=== PATIENT | female | born 1945 | race Caucasian/White ===

== ENCOUNTER 2024-03-12 13:09 | Inpatient (IN) | payer OTHER ==
[2024-03-12] VITALS (17 sets, daily range): BP systolic 86–136; BP diastolic 54–106
[~2024-03-12] VITALS: Ht 177.8 cm; Wt 118.0 kg
[2024-03-12] MEDS ORDERED: Diltiazem HCl 5 MG / ML 5ML Vial IV ONE (13:35)
[2024-03-12 13:43] LABS: BASOPHILS ABSOLUTE AUTO 0.09 K/mm3 (0.00-0.23); BASOPHILS PERCENT AUTO 0 % (0-2); EOSINOPHILS ABSOLUTE AUTO 0.04 K/mm3 (0.00-0.68); EOSINOPHILS PERCENT AUTO 0 % (0-6); Hematocrit 40.8 % (33.0-51.0); Hemoglobin 13.7 g/dL (11.5-16.0); IMMATURE GRAN ABSOLUTE AUTO 0.13 K/mm3 (0.00-0.10); IMMATURE GRAN PERCENT AUTO 1 % (0-1); LYMPHOCYTES ABSOLUTE AUTO 1.56 K/mm3 (0.84-5.20); LYMPHOCYTES PERCENT AUTO 6 % (21-46); MONOCYTES ABSOLUTE AUTO 1.91 K/mm3 (0.16-1.47); MONOCYTES PERCENT AUTO 8 % (4-13); Mean Corpuscular HGB 28.1 pg (26.0-34.0); Mean Corpuscular HGB Conc 33.6 g/dL (31.5-36.5); Mean Corpuscular Volume 84 fL (80-100); Mean Platelet Volume 9.7 fL (9.1-12.4); NEUTROPHILS ABSOLUTE AUTO 20.85 K/mm3 (1.96-9.15); NEUTROPHILS PERCENT AUTO 85 % (41-73); Platelet Count 302 K/mm3 (150-400); RDW Coefficient Variation 13.9 % (11.7-14.2); RDW Standard Deviation 42.6 fL (35.1-46.3); Red Blood Cell Count 4.88 M/mm3 (3.80-5.20); White Blood Cell Count 24.58 K/mm3 (4.00-11.30)
[2024-03-12] MEDS ORDERED: Morphine Sulfate 4 MG/1 ML Injection IV ONE (13:50)
[2024-03-12 14:04] LABS: Albumin, Blood 3.1 g/dL (3.4-5.0); Albumin/Globulin Ratio 0.8 (0.8-1.8); Bilirubin, Total 1.2 mg/dL (0.1-1.0); Bun/Creatinine Ratio 27.6 (12.0-20.0); Calcium, Blood 8.9 mg/dL (8.5-10.1); Creatinine, Blood 0.65 mg/dL (0.40-1.00); Globulin, Blood 3.7 g/dL (2.2-4.0); Potassium, Blood 3.7 mmol/L (3.5-5.5); Total Protein, Blood 6.8 g/dL (6.4-8.2)
[2024-03-12] MEDS ORDERED: dilTIAZem HCL 100 MG in NS 100 ML IV SCH (14:05)
[2024-03-12] MEDS ORDERED: NS 1,000 ML IV SCH ×2 (14:25→15:05)
[2024-03-12 15:13] LABS: Influenza A, PCR NEGATIVE (NEGATIVE); Influenza B, PCR NEGATIVE (NEGATIVE); Resp Syncytial Virus, PCR NEGATIVE (NEGATIVE); SARS-Cov-2 (COVID-19) PCR, MMC NEGATIVE (NEGATIVE)
[2024-03-12] MEDS ORDERED: Digoxin 0.25 MG/ML 2ML Amp IV ONE (16:45)
[2024-03-12] MEDS ORDERED: Magnesium Sulf 2 GM/Water 50ML 50 ML IV ONE (16:45)
[2024-03-12] MEDS ORDERED: FLU VACC TS2024-25(6MOS UP)/PF 45 MCG/0.5 ML SYRINGE IM SCH (17:10)
[2024-03-12] MEDS ORDERED: Azithromycin 500 MG in NS 250 ML IV SCH (17:14)
[2024-03-12] MEDS ORDERED: CefTRIAXone Sodium 1,000 MG in NS 100 ML IV SCH (18:00)
[2024-03-12 18:01] LABS: Free Thyroxine 1.13 ng/dL (0.70-1.60); Magnesium, Blood 1.2 mg/dL (1.6-2.4); Phosphorus, Blood 2.6 mg/dL (2.5-4.9); Thyroid Stimulating Hormone 0.839 uIU/mL (0.360-4.800)
[2024-03-12] MEDS ORDERED: HYDROcodone 5-APAP 325 TAB PO PRN (18:35)
[2024-03-12] MEDS ORDERED: Morphine Sulfate 4 MG/1 ML Injection IV PRN (18:40)
[2024-03-12] MEDS ORDERED: Norco 5-325 Ta1 EACH PO (18:42)
[2024-03-12] MEDS ORDERED: HYDCHL25 PO (18:43)
[2024-03-12] MEDS ORDERED: Pepcid 20 mg Ta20 MG PO (18:43)
[2024-03-12] MEDS ORDERED: ATOR80 PO (18:43)
[2024-03-12] MEDS ORDERED: ATEN100 PO (18:44)
[2024-03-12] MEDS ORDERED: ALBU90OI INH (18:44)
[2024-03-12] MEDS ORDERED: BENADRYL25 MG PO (18:44)
[2024-03-12] MEDS ORDERED: OMEP20ER PO (18:45)
[2024-03-12] MEDS ORDERED: CARAFATE1 GM PO (18:45)
[2024-03-12] MEDS ORDERED: FLUTICASONE-SA1 EAC8 INH (18:46)
[2024-03-12] MEDS ORDERED: LEVOCETIRIZINE D5 MG PO (18:47)
[2024-03-12] MEDS ORDERED: LEVOTHYROXINE25 MC9 PO (18:47)
[2024-03-12] MEDS ORDERED: ASPI325 PO (18:48)
[2024-03-12] MEDS ORDERED: INSULANPEN SC (18:48)
[2024-03-12] MEDS ORDERED: Mometasone/Formoterol MDI 100/5 mcg 13 GM INH SCH (18:55)
[2024-03-12] MEDS ORDERED: Enoxaparin 120 MG/0.8 ML SYR SC SCH (19:00)
[2024-03-12] MEDS ORDERED: Metoprolol Tartrate 25 MG Tab PO SCH (19:00)
[2024-03-12] MEDS ORDERED: Insulin Glargine-Yfgn 100 Unit/mL 3 ML SYR SC SCH (21:00)
[2024-03-12] MEDS ORDERED: Famotidine 20 MG Tab PO SCH (21:00)
[2024-03-12] MEDS ORDERED: Insulin Human Lispro 100 Units/ML 3ML Syringe SC SCH (21:00)
[2024-03-12] MEDS ORDERED: Ondansetron HCl 2 MG / ML 2ML Vial IV PRN (21:03)
[2024-03-12 22:32] LABS: Source, Urine Clean Catch
[2024-03-12 22:49] LABS: Appearance, Urine Clear (Clear); Bilirubin, Urine Neg (Neg); Blood, Urine Neg (Neg); Color, Urine Yellow (P-Yellow); Glucose Qualitative, Urine Neg (Neg); Ketones, Urine Neg (Neg); Leukocyte Esterase, Urine 2+ (Neg); Nitrite, Urine Neg (Neg); Protein, Urine Neg (Neg); Specific Gravity, Urine 1.015 (1.003-1.022); Urobilinogen, Urine NORM (Normal)
[2024-03-12 23:05] LABS: Bacteria Mod /hpf; Red Blood Cells, Urine 0-2 /hpf (0-2); Squamous Epithelial Cells Few /hpf (Few)
[2024-03-13] VITALS (22 sets, daily range): BP systolic 92–139; BP diastolic 50–97
[2024-03-13 04:14] LABS: BASOPHILS PERCENT AUTO 0 % (0-2); EOSINOPHILS ABSOLUTE AUTO 0.06 K/mm3 (0.00-0.68); EOSINOPHILS PERCENT AUTO 0 % (0-6); Hematocrit 36.6 % (33.0-51.0); Hemoglobin 11.9 g/dL (11.5-16.0); IMMATURE GRAN ABSOLUTE AUTO 0.13 K/mm3 (0.00-0.10); IMMATURE GRAN PERCENT AUTO 1 % (0-1); LYMPHOCYTES PERCENT AUTO 17 % (21-46); MONOCYTES ABSOLUTE AUTO 1.97 K/mm3 (0.16-1.47); MONOCYTES PERCENT AUTO 8 % (4-13); Mean Corpuscular HGB 27.7 pg (26.0-34.0); Mean Corpuscular HGB Conc 32.5 g/dL (31.5-36.5); Mean Corpuscular Volume 85 fL (80-100); Mean Platelet Volume 9.8 fL (9.1-12.4); NEUTROPHILS ABSOLUTE AUTO 18.23 K/mm3 (1.96-9.15); NEUTROPHILS PERCENT AUTO 74 % (41-73); Platelet Count 283 K/mm3 (150-400); RDW Coefficient Variation 14.2 % (11.7-14.2); RDW Standard Deviation 44.1 fL (35.1-46.3); White Blood Cell Count 24.79 K/mm3 (4.00-11.30)
[2024-03-13] MEDS ORDERED: Omeprazole 20 MG CapCR PO SCH (06:00)
[2024-03-13] MEDS ORDERED: Levothyroxine Sodium 0.025 MG Tab PO SCH (06:00)
[2024-03-13 06:07] LABS: Albumin, Blood 2.7 g/dL (3.4-5.0); Albumin/Globulin Ratio 0.8 (0.8-1.8); Bilirubin, Total 0.8 mg/dL (0.1-1.0); Bun/Creatinine Ratio 24.9 (12.0-20.0); Calcium, Blood 8.6 mg/dL (8.5-10.1); Creatinine, Blood 0.72 mg/dL (0.40-1.00); Globulin, Blood 3.3 g/dL (2.2-4.0); Potassium, Blood 3.9 mmol/L (3.5-5.5)
--- NOTE | 2024-03-13 06:22 | NUR ---
SHIFT SUMMARY PT A&O X4. VSS; SBP HIGH 90'S - 120'S, HRR AFIB 100'S - 1 TEENS ON 5 MLS/HR CARDIZEM GTT. PT WITH OCCASSIONAL TOUCH INTO 130 - 140'S, MOSTLY WHEN UP AMBULATING TO RESTROOM. DOES NOT SUSTAIN, ASYMPTOMATIC. NO EVENTS OF CP/PRESSURE, DIZZINESS, PALPITATIONS OR DYSPNEA. PT WITH EPISODE OF NAUSEA AT START OF SHIFT AFTER ATTEMPTING TO EAT; RESIDENT NOTIFIED, ZOFRAN PER EMAR ORDERED. ADMINISTERED WITH GOOD RELIEF. PT WITH ABD PAIN AND "GENERAL PAIN" MEDICATION X1 PER EMAR; 2 MG OF MORPHINE AND 1 NORCO PER EMAR ADMINISTERED WITH GOOD RELIEF OF PAIN. PT ABLE TO SLEEP WELL THROUGH THE NIGHT. WHILE PT SLEEPING, 02 DECREASED TO LOW 80'S; 2 LPM NC PLACED. OF NOTE PT USES CPAP AT HOME, DECLINED HOSPITAL CPAP. TO BRING IN HOME CPAP TODAY. PT VOIDING WELL, URINE DARK IN COLOR BUT NO ODOR NOTED. UA SENT PER ORDERS. PT SBA FOR CORD MANAGEMENT TO BSC. NO BM THIS SHIFT; GI PANEL PENDING. PT DENIES COUGH OR SPUTUM PRODUCTION, SPUTUM SAMPLE STILL PENDING. PT TOLERATING PO WATER INTAKE, STRUGGLING WITH SOLID FOODS D/T NAUSEA THAT HAS BEEN ONGOING. PT ENCOURAGED TO EAT SOFT, LIGHT FOODS. ABX PER EMAR. ABLE TO MAKE NEEDS KNOWN, CALL LIGHT IN REACH. WILL UPDATE ONCOMING RN.
[2024-03-13] MEDS ORDERED: Magnesium Sulf 2 GM/Water 50ML 50 ML IV SCH (09:00)
[2024-03-13] MEDS ORDERED: Digoxin 0.25 MG/ML 2ML Amp IV SCH (09:00)
[2024-03-13] MEDS ORDERED: Aspirin 81 MG Chew PO SCH (09:00)
--- NOTE | 2024-03-13 09:19 | NUR ---
NURSING PCU DAYSHIFT: Assumed care of pt at approx 0700. A/O, very pleasant, cooperative w/care. Mild general weakness, able to ambulate w/minimal assist for line management. C/O 4/10 abd discomfort, consistent w/pain prior to admit for approx 1 month, tx w/meds as ordered as well as rest and repositioning. Skin intact, no breakdown noted. Tele in place, afib w/HR 90-120's, no c/o CP/pressure, SBP 131 prior to a.m. meds, no noted edema. L/S cta t/o, c/o mild dyspnea w/exertion, no noted cough, O2 sat mid 90's on RA. Abd soft, BT+, voiding w/o difficulty per pt. PIV x2, dilt gtt infusing at 5mls/hr, abx as scheduled. Seen by PMD, new d/o received. ECHO completed, plan for CT PE this a.m. Plan of care discussed w/pt and s/o, questions answered. No s/s of acute distress at this time, pt currently OOB in chair, tolerated breakfast well. Will attempt to titrate dilt gtt off and manage HR w/PO meds only. Call light in reach, cont to monitor for changes.
[2024-03-13] MEDS ORDERED: IMVEXXY10 MCG VAG (13:57)
[2024-03-13] MEDS ORDERED: PREG75 PO (13:59)
[2024-03-13] MEDS ORDERED: SUCRALFATE114 PO (14:02)
[2024-03-13] MEDS ORDERED: CefTRIAXone Sodium 2,000 MG in NS 100 ML IV SCH (18:00)
--- NOTE | 2024-03-13 18:08 | NUR ---
NURSING PCU DAYSHIFT SUMMARY: Pt has done fairly well t/o shift. At approx 1100, pt began to experience nausea with midsternal/epigastric discomfort that radiated to the back between shoulder blades, mild diaphoresis and paleness. VS and rhythm assessed w/no changes noted, pt repositioned, zofran administered, PMD notified. Pt recovered without further intervention and expressed that these episodes had been occuring at home prior to admit. Dilt gtt discontinued at 1000, rate has remained fairly controlled. At approx 1300, HR increased to 130-150's w/exertion, PMD notified, evening dose of metoprolol increased, dilt gtt remained on hold, HR currently 90-120's. CT PE completed, results reviewed and discussed w/PMD, new d/o received. Provided updated plan of care to pt and s/o who has remained at bedside t/o majority of the shift, questions answered. Pt appears to be resting comfortably at this time and is in good spirits, agreeable to current plan, denies needs at this time. Call light in reach, monitor until rpt is given to NOC RN.
[2024-03-13] MEDS ORDERED: Metoprolol Tartrate 50 MG Tab PO SCH (21:00)
[2024-03-13] MEDS ORDERED: ELIQUIS5 M2 PO (21:48)
[2024-03-14 00:40] VITALS: BP 118/75
[2024-03-14 04:04] LABS: BASOPHILS ABSOLUTE AUTO 0.05 K/mm3 (0.00-0.23); BASOPHILS PERCENT AUTO 1 % (0-2); EOSINOPHILS ABSOLUTE AUTO 0.15 K/mm3 (0.00-0.68); EOSINOPHILS PERCENT AUTO 2 % (0-6); Hematocrit 36.1 % (33.0-51.0); Hemoglobin 11.4 g/dL (11.5-16.0); IMMATURE GRAN ABSOLUTE AUTO 0.03 K/mm3 (0.00-0.10); IMMATURE GRAN PERCENT AUTO 0 % (0-1); LYMPHOCYTES ABSOLUTE AUTO 3.37 K/mm3 (0.84-5.20); LYMPHOCYTES PERCENT AUTO 34 % (21-46); MONOCYTES ABSOLUTE AUTO 0.79 K/mm3 (0.16-1.47); MONOCYTES PERCENT AUTO 8 % (4-13); Mean Corpuscular HGB 27.6 pg (26.0-34.0); Mean Corpuscular HGB Conc 31.6 g/dL (31.5-36.5); Mean Corpuscular Volume 87 fL (80-100); Mean Platelet Volume 9.9 fL (9.1-12.4); NEUTROPHILS ABSOLUTE AUTO 5.61 K/mm3 (1.96-9.15); NEUTROPHILS PERCENT AUTO 56 % (41-73); Platelet Count 274 K/mm3 (150-400); RDW Coefficient Variation 14.3 % (11.7-14.2); Red Blood Cell Count 4.13 M/mm3 (3.80-5.20)
[2024-03-14 04:05] VITALS: BP 136/80
[2024-03-14 04:25] LABS: Albumin, Blood 2.6 g/dL (3.4-5.0); Albumin/Globulin Ratio 0.7 (0.8-1.8); Bilirubin, Total 0.3 mg/dL (0.1-1.0); Bun/Creatinine Ratio 24.6 (12.0-20.0); Calcium, Blood 8.6 mg/dL (8.5-10.1); Creatinine, Blood 0.69 mg/dL (0.40-1.00); Globulin, Blood 3.5 g/dL (2.2-4.0); Magnesium, Blood 1.7 mg/dL (1.6-2.4); Potassium, Blood 3.9 mmol/L (3.5-5.5); Total Protein, Blood 6.1 g/dL (6.4-8.2)
[2024-03-14] MEDS ORDERED: Simethicone 80 MG Chew PO PRN (04:40)
--- NOTE | 2024-03-14 05:07 | NUR ---
SHIFT SUMMARY. SHIFT HAS BEEN UNREMARKABLE. PT AOX4, PLEASANT, COOPERATIVE WITH CARE, CALLS APPROPRIATELY, ABLE TO MAKE NEEDS KNOWN. HAS RESTED COMFORTABLY THROUGHOUT SHIFT. HAS DENIED PAIN. CONTINUES TO RUN AFIB WITH VARIABLE HEART RATE THROUGHOUT SHIFT. VITALS HAVE REMAINED STABLE. MAINTAINS ADEQUATE SATURATION ON ROOM AIR WHILE [place], 2 L O2 VIA NC WHILE SLEEPING. REPORTED SOME GASTRIC PAIN THIS MORNING. SPOKE WITH DR. BEAVERS AND ORDERED SIMETHICONE FOR MANAGEMENT. SHIFT OTHERWISE HAS BEEN UNREMARKABLE. INDEPENDENT TO BATHROOM, URINE OUTPUT CHARTED APPROPRIATELY. BED LOCKED IN LOWEST POSITION. CALL LIGHT LEFT WITHIN REACH. CONTINUING TO MONITOR.
[2024-03-14] MEDS ORDERED: Enoxaparin 120 MG/0.8 ML SYR SC SCH (09:00)
[2024-03-14] MEDS ORDERED: Metoprolol Tartrate 50 MG Tab PO SCH (09:00)
[2024-03-14 10:05] VITALS: BP 117/79
[2024-03-14 11:47] VITALS: BP 118/80
[2024-03-14 11:50] VITALS: BP 154/143
[2024-03-14] MEDS ORDERED: NS 250 ML IV PRN (18:30)
--- NOTE | 2024-03-14 18:31 | NUR ---
Summary. Pt rested in bed this shift. Alert and oriented, no acute events this shift. Pt remains in Afib w/RVR, physician aware. Family at bedside throughout shift. VS stable. See chart for further details.
[2024-03-14 20:26] VITALS: BP 123/96
[2024-03-15] VITALS (7 sets, daily range): BP systolic 110–138; BP diastolic 71–97
[2024-03-15 04:30] LABS: BASOPHILS ABSOLUTE AUTO 0.06 K/mm3 (0.00-0.23); BASOPHILS PERCENT AUTO 1 % (0-2); EOSINOPHILS ABSOLUTE AUTO 0.13 K/mm3 (0.00-0.68); EOSINOPHILS PERCENT AUTO 1 % (0-6); Hematocrit 37.8 % (33.0-51.0); IMMATURE GRAN ABSOLUTE AUTO 0.03 K/mm3 (0.00-0.10); IMMATURE GRAN PERCENT AUTO 0 % (0-1); LYMPHOCYTES ABSOLUTE AUTO 2.64 K/mm3 (0.84-5.20); LYMPHOCYTES PERCENT AUTO 28 % (21-46); MONOCYTES ABSOLUTE AUTO 0.71 K/mm3 (0.16-1.47); MONOCYTES PERCENT AUTO 8 % (4-13); Mean Corpuscular HGB 27.5 pg (26.0-34.0); Mean Corpuscular HGB Conc 31.7 g/dL (31.5-36.5); Mean Corpuscular Volume 87 fL (80-100); Mean Platelet Volume 10.2 fL (9.1-12.4); NEUTROPHILS ABSOLUTE AUTO 5.72 K/mm3 (1.96-9.15); NEUTROPHILS PERCENT AUTO 62 % (41-73); Platelet Count 279 K/mm3 (150-400); RDW Coefficient Variation 14.2 % (11.7-14.2); RDW Standard Deviation 45.4 fL (35.1-46.3); Red Blood Cell Count 4.36 M/mm3 (3.80-5.20); White Blood Cell Count 9.29 K/mm3 (4.00-11.30)
--- NOTE | 2024-03-15 04:49 | NUR ---
SHIFT SUMMARY. SHIFT HAS BEEN UNREMARKABLE. PT AOX4, PLEASANT, COOPERATIVE WITH CARE, CALLS APPROPRIATELY FOR ASSISTANCE, ABLE TO MAKE NEEDS KNOWN. HAS BEEN ABLE TO REST COMFORTABLY THROUGHOUT SHIFT. PAIN ADEQUATELY MANAGED VIA EMAR. VITALS STABLE. MAINTAINS ADEQUATE SATURATION ON ROOM AIR WHILE AWAKE, 2 L O2 VIA NC WHILE SLEEPING. HAS BEEN NPO OUTSIDE OF SOME WATER SINCE MIDNIGHT PENDING STRESS TEST TODAY. PT REMAINS INDEPENDENT TO BATHROOM AND CALLS APPROPRIATELY FOR REQUIRED ASSISTANCE. OUTPUT CONSISTENT AND CHARTED APPROPRIATELY. BED LOCKED IN LOWEST POSITION. CALL LIGHT LEFT WITHIN REACH. CONTINUING TO MONITOR.
[2024-03-15 04:57] LABS: Albumin, Blood 2.8 g/dL (3.4-5.0); Albumin/Globulin Ratio 0.8 (0.8-1.8); Bilirubin, Total 0.3 mg/dL (0.1-1.0); Bun/Creatinine Ratio 23.4 (12.0-20.0); Calcium, Blood 8.9 mg/dL (8.5-10.1); Creatinine, Blood 0.68 mg/dL (0.40-1.00); Globulin, Blood 3.5 g/dL (2.2-4.0); Potassium, Blood 4.1 mmol/L (3.5-5.5); Total Protein, Blood 6.3 g/dL (6.4-8.2)
[2024-03-15] MEDS ORDERED: Caffeine Citrated 60 MG/3 ML Vial ONE (13:29)
[2024-03-15] MEDS ORDERED: Regadenoson 0.4 MG/5 ML SYRINGE ONE (13:29)
[2024-03-15] MEDS ORDERED: Metoprolol Succinate 50 MG TABCR PO SCH (18:00)
--- NOTE | 2024-03-15 18:00 | NUR ---
SHIFT SUMMARY NEURO: PT ALERT AND ORIENTED. NO NEURO SYMPTOMS. CARDIAC: PT CONTINUES TO REMAIN IN AFIB/RVR THROUGOUT THE DAY RATE 90'S-150'S BUT IS NOT SUSTAINING RVR. PROVIDER AWARE. PT DENIES ANY CP. PT HAD THE FIRST PART OF HER STRESS TEST THIS AFTERNOON. SECOND PART WILL BE DONE TOMORROW. RESP: PT C/O SOME SOB THIS AM THAT WAS RELIEVED WITH HER INHALER AND HAS NOT COMPLAINED OF SOB THE REST OF THE DAY. PT ON RA MAINTAINUNG O2 SATS ABOVE 94%. GI/: PT REPORTS SLIGHT ABD PAIN ON AND OFF THROUGHOUT THE DAY. USES THE BATHROOM INDEPENDENTLY. DENIES ANY URINARY SYMPTOMS. LINES: 20G LWR. PATENT. NO SIGNIFICANT EVENTS HAVE HAPPENED DURING THIS SHIFT. THIS RN WILL CONTINUE TO CARE FOR PT TILL SHIFT CHANGE.
[2024-03-16 03:51] LABS: BASOPHILS ABSOLUTE AUTO 0.05 K/mm3 (0.00-0.23); BASOPHILS PERCENT AUTO 1 % (0-2); EOSINOPHILS ABSOLUTE AUTO 0.14 K/mm3 (0.00-0.68); EOSINOPHILS PERCENT AUTO 2 % (0-6); Hematocrit 36.8 % (33.0-51.0); Hemoglobin 11.7 g/dL (11.5-16.0); IMMATURE GRAN ABSOLUTE AUTO 0.04 K/mm3 (0.00-0.10); IMMATURE GRAN PERCENT AUTO 1 % (0-1); LYMPHOCYTES ABSOLUTE AUTO 2.78 K/mm3 (0.84-5.20); LYMPHOCYTES PERCENT AUTO 32 % (21-46); MONOCYTES ABSOLUTE AUTO 0.73 K/mm3 (0.16-1.47); MONOCYTES PERCENT AUTO 8 % (4-13); Mean Corpuscular HGB 27.7 pg (26.0-34.0); Mean Corpuscular HGB Conc 31.8 g/dL (31.5-36.5); Mean Corpuscular Volume 87 fL (80-100); Mean Platelet Volume 10.1 fL (9.1-12.4); NEUTROPHILS ABSOLUTE AUTO 4.95 K/mm3 (1.96-9.15); NEUTROPHILS PERCENT AUTO 57 % (41-73); Platelet Count 294 K/mm3 (150-400); RDW Coefficient Variation 14.4 % (11.7-14.2); RDW Standard Deviation 46.2 fL (35.1-46.3); Red Blood Cell Count 4.22 M/mm3 (3.80-5.20); White Blood Cell Count 8.69 K/mm3 (4.00-11.30)
[2024-03-16 04:06] LABS: Bun/Creatinine Ratio 21.3 (12.0-20.0); Creatinine, Blood 0.71 mg/dL (0.40-1.00)
[2024-03-16 04:07] VITALS: BP 111/68
--- NOTE | 2024-03-16 05:08 | NUR ---
SHIFT SUMMARY. SHIFT HAS BEEN MOSTLY UNREMARKABLE. PT AOX4, PLEASANT, COOPERATIVE WITH CARE, CALLS APPROPRIATELY FOR ASSISTANCE, ABLE TO MAKE NEEDS KNOWN. HAS BEEN ABLE TO REST COMFORTABLY THROUGHOUT SHIFT. PAIN ADEQUATELY MANAGED VIA EMAR. CONTINUES TO RUN AFIB ON MONITOR WITH ONLY BRIEF SPIKES OF TACHYCARDIA ASSOCIATED WITH AMBULATION/TRANSFER. VITALS HAVE REMAINED STABLE. HAS MAINTAINED ADEQUATE SATURATION ON ROOM AIR, AT TIMES REQUIRING 2 L O2 VIA NC WHILE SLEEPING. HAS BEEN NPO SINCE MIDNIGHT OUTSIDE OF WATER PENDING SECOND PART OF STRESS TEST TODAY. THIS MORNING, REPORTED FEELING SOMEWHAT LIGHT HEADED WITH COMPLAINTS OF "SPASM" SENSATION ON LEFT SIDE OF BACK. DENIED ANY OTHER ASSOCIATED SYMPTOMS, BP WAS UNREMARKABLE. PT REPORTED THAT THIS HAS OCCASIONALLY HAPPENED IN THE PAST. BY THE TIME THIS RN ARRIVED IN THE ROOM THE SENSATIONS HAD ALL BUT COMPLETELY ALLEVIATED. OTHERWISE SHIFT HAS BEEN UNREMARKABLE. BED LOCKED IN LOWEST POSITION. CALL LIGHT LEFT WITHIN REACH. CONTINUING TO MONITOR.
[2024-03-16 07:48] VITALS: BP 122/77
[2024-03-16] MEDS ORDERED: Metoprolol Succinate 50 MG TABCR PO SCH (08:00)
[2024-03-16] MEDS ORDERED: dilTIAZem HCL 30 MG TAB PO PRN (10:55)
[2024-03-16 12:44] VITALS: BP 141/108
--- NOTE | 2024-03-16 13:15 | NUR ---
DR SHAHID NOTIFIED AT 1315 ON 03/16/24 OF ELEVATED BP OF 144/108 WITH A RATE AT 1312 PER MASTER DATA ANALYST TRACEE OF 110. DR SHAHID TO REVIEW RECENT CARDIZEM ORDER. NO NEW ORDERS AT THIS TIME.
[2024-03-16 13:39] VITALS: BP 137/106
[2024-03-16] MEDS ORDERED: dilTIAZem HCL 30 MG TAB PO SCH (14:00)
--- NOTE | 2024-03-16 14:11 | NUR ---
PT TRANSFERRED TO ROOM 334 FROM PCU 3. PT LEFT ROOM PRIOR TO THIS NOTE VIA WHEELCHAIR WITH ABDULLAHI VALADEZ ESCORTING. PT'S SPOUSE PRESENT. REPORT GIVEN TO MAYELIN MORROW AT BEDSIDE PRIOR TO THIS NOTE AT ABOUT 1400. PT AND SPOUSE EDUCATED ON NEW MEDICATION, DILTIAZEM PRIOR TO ADMINISTRATION. VSS AT TIME OF TRANSFER. PT AXO, PLEASANT AND COOPERATIVE WITH CARE.
[2024-03-16 16:08] VITALS: BP 121/88
--- NOTE | 2024-03-16 16:19 | NUR ---
SHIFT SUMMARY; PATIENT IS A PCU TRANSFER. SHE COMES TO ROOM VIA WHEEL CHAIR. SHE IS ON ROOM AIR. AO X 4. VITAL SIGNS ARE STABLE, HER HEART RATE IS ELEVATED AT 98. PATIENT HAS PLEASANT AFFECT AND IS COOPERATIVE WITH CARE. HER LUNGS ARE CLEAR BUT DIMINISHED. SHE TAKES HER MEDS WHOLE WITH WATER. 2ND PART OF STRESS TEST IS DONE TODAY. PATEINT DENIES ANY CP OR PRESSURE DURING THE DAY. REMAINS ON TELE. WILL CONTINUE TO MONITOR THIS PATIENT CLOSELY UNTIL REPORT AND HAND OFF TO NOC SHIFT RN.
[2024-03-16 19:11] VITALS: BP 133/82
[2024-03-17 04:03] VITALS: BP 125/85
--- NOTE | 2024-03-17 04:38 | NUR ---
SHIFT SUMMARY PATIENT HAD NO ACUTE CHANGES. AXO X4 AND INDEPENDENT IN ROOM. DENIES CHEST PAIN, SOB, AND N/V. VSS/AFIBRILE. REPORTED GAS X ONE AND SIMETHICONE 80 MG GIVEN PER EMAR WITH GOOD RELIEF. TELE MONITOR AFIB 86, SPOUSE STAYED T/O SHIFT. SLEPT MOST OF THE SHIFT. CALL LIGHT IN REACH. BED IN LOWEST POSITION. WILL CONTINUE TO MONITOR UNTIL DAY SHIFT NURSE ASSUMES CARE.
[2024-03-17 05:41] LABS: BASOPHILS ABSOLUTE AUTO 0.07 K/mm3 (0.00-0.23); BASOPHILS PERCENT AUTO 1 % (0-2); EOSINOPHILS ABSOLUTE AUTO 0.13 K/mm3 (0.00-0.68); EOSINOPHILS PERCENT AUTO 2 % (0-6); Hematocrit 39.3 % (33.0-51.0); Hemoglobin 12.7 g/dL (11.5-16.0); IMMATURE GRAN ABSOLUTE AUTO 0.05 K/mm3 (0.00-0.10); IMMATURE GRAN PERCENT AUTO 1 % (0-1); LYMPHOCYTES ABSOLUTE AUTO 3.19 K/mm3 (0.84-5.20); LYMPHOCYTES PERCENT AUTO 36 % (21-46); MONOCYTES ABSOLUTE AUTO 0.78 K/mm3 (0.16-1.47); MONOCYTES PERCENT AUTO 9 % (4-13); Mean Corpuscular HGB 27.9 pg (26.0-34.0); Mean Corpuscular HGB Conc 32.3 g/dL (31.5-36.5); Mean Corpuscular Volume 86 fL (80-100); Mean Platelet Volume 9.9 fL (9.1-12.4); NEUTROPHILS ABSOLUTE AUTO 4.73 K/mm3 (1.96-9.15); NEUTROPHILS PERCENT AUTO 53 % (41-73); Platelet Count 333 K/mm3 (150-400); RDW Coefficient Variation 14.2 % (11.7-14.2); Red Blood Cell Count 4.56 M/mm3 (3.80-5.20); White Blood Cell Count 8.95 K/mm3 (4.00-11.30)
[2024-03-17 05:59] LABS: Bun/Creatinine Ratio 17.4 (12.0-20.0); Calcium, Blood 9.5 mg/dL (8.5-10.1); Creatinine, Blood 0.75 mg/dL (0.40-1.00); Potassium, Blood 4.1 mmol/L (3.5-5.5)
[2024-03-17 07:55] VITALS: BP 142/87
[2024-03-17] MEDS ORDERED: Diltiazem HCl 180 MG Cap.CD PO SCH (08:00)
[2024-03-17] MEDS ORDERED: METO50ER PO (13:14)
[2024-03-17] MEDS ORDERED: ELIQUIS5 M2 PO (13:14)
[2024-03-17] MEDS ORDERED: DILT180 PO (13:14)
[2024-03-17] MEDS ORDERED: AMOCLA875 PO (13:15)
--- NOTE | 2024-03-17 14:58 | NUR ---
discharge reviewed withpt and spouse, discussed increased risk of bleeding. watch cutting self with knives, razors, etc. pt verbalized understanding of risks. verbalized understanding meds and inst. iv pulled intact. tele removed by patient. pt wheeled to door at 1410 by aide.
== END 2024-03-17 14:30 | disposition home or self-care (01) | DRG 871 ==
LOC: ER 13:09 → PCU 13:10 → MEDS 03-16 15:26 → ENPENDDIS 03-17 12:49 → MEDS 03-17 14:30
PROVIDERS: Physician Assistant; Student in an Organized Health Care Education/Training Program; ADMIT Internal Medicine
DX: A41.9 Sepsis, unspecified organism (principal); J18.9 Pneumonia, unspecified organism; J96.01 Acute respiratory failure with hypoxia; E87.21 Acute metabolic acidosis; I50.32 Chronic diastolic (congestive) heart failure; R65.20 Severe sepsis without septic shock; I48.91 Unspecified atrial fibrillation; K29.50 Unspecified chronic gastritis without bleeding; F03.90 Unspecified dementia, unspecified severity, without behavioral disturbance, psychotic disturbance, mood disturbance, and anxiety; F32.A Depression, unspecified; I11.0 Hypertensive heart disease with heart failure; G89.29 Other chronic pain; K21.9 Gastro-esophageal reflux disease without esophagitis; M79.7 Fibromyalgia; E78.5 Hyperlipidemia, unspecified; K22.70 Barrett's esophagus without dysplasia; E11.40 Type 2 diabetes mellitus with diabetic neuropathy, unspecified; G47.33 Obstructive sleep apnea (adult) (pediatric); J45.909 Unspecified asthma, uncomplicated; Z90.49 Acquired absence of other specified parts of digestive tract; Z98.890 Other specified postprocedural states
CPT/HCPCS: 0241U; 36415; 71046; 71260; 74177; 78452; 80048; 80053; 81001; 82947; 83605; 83735; 83880; 84100; 84145; 84439; 84443; 84484; 85025; 85379; 87040; 87086; 87449; 93005; 93010; 93017; 93306; 94640; 94664; 94760; 94762; 96361; 96365-59; 96366; 96367; 96368; 96372; 96375; 96376; 99285-25; A9270; A9500; G0378; J0456; J0696; J0706; J1160; J1650; J1815; J2270; J2405; J2785; J3475; J7030; J7050; Q9967

== ENCOUNTER 2024-06-15 08:53 | Day surgery (SDC) | payer OTHER ==
[~2024-06-15] VITALS: Ht 177.8 cm; Wt 115.0 kg
[2024-06-15] VITALS (10 sets, daily range): BP systolic 103–152; BP diastolic 57–97
[~2024-06-15 08:53] MED LIST: ALBU90OI INH; AMOCLA875 PO; ASPI325 PO; ATEN100 PO; ATOR80 PO; BENADRYL25 MG PO; CARAFATE1 GM PO; DILT180 PO; ELIQUIS5 M2 PO; FLUTICASONE-SA1 EAC8 INH; HYDCHL25 PO; IMVEXXY10 MCG VAG; INSULANPEN SC; LEVOCETIRIZINE D5 MG PO; LEVOTHYROXINE25 MC9 PO; METO50ER PO; Norco 5-325 Ta1 EACH PO; OMEP20ER PO; PREG75 PO; Pepcid 20 mg Ta20 MG PO; SUCRALFATE114 PO
[2024-06-15] MEDS ORDERED: Flecainide Acet50 MG PO (09:24)
[2024-06-15] MEDS ORDERED: DIPH50 PO (09:25)
[2024-06-15] MEDS ORDERED: OMEP20ER PO (09:25)
[2024-06-15] MEDS ORDERED: NS 1,000 ML IV ONE (09:48)
== END 2024-06-15 23:00 | disposition home or self-care (01) ==
LOC: MHTC 08:53
DX: I48.19 Other persistent atrial fibrillation (principal); I10 Essential (primary) hypertension; M79.7 Fibromyalgia; K21.9 Gastro-esophageal reflux disease without esophagitis; F03.90 Unspecified dementia, unspecified severity, without behavioral disturbance, psychotic disturbance, mood disturbance, and anxiety; E78.5 Hyperlipidemia, unspecified; E11.40 Type 2 diabetes mellitus with diabetic neuropathy, unspecified; G47.33 Obstructive sleep apnea (adult) (pediatric); E66.9 Obesity, unspecified; Z68.33 Body mass index [BMI] 33.0-33.9, adult; Z88.5 Allergy status to narcotic agent; Z88.2 Allergy status to sulfonamides; Z88.8 Allergy status to other drugs, medicaments and biological substances; Z90.49 Acquired absence of other specified parts of digestive tract
CPT/HCPCS: 92960; 93005; 93010; J7030